=== PATIENT | male | born 1980 | race African-American/Black ===

== ENCOUNTER 2021-06-23 02:55 | Emergency (ER) | payer SELFPAY ==
[~2021-06-23] VITALS: Ht 167.6 cm; Wt 68.0 kg
[2021-06-23 03:00] VITALS: BP 132/79
== END 2021-06-23 05:56 | disposition home or self-care (01) ==
LOC: ER 02:55 → EDBD 02:55 → ER 05:56
DX: F20.0 Paranoid schizophrenia (principal); Z76.0 Encounter for issue of repeat prescription